=== PATIENT | male | born 1990 | race Caucasian/White ===

== ENCOUNTER → 2017-04-15 | Outpatient (CLI) | payer MEDICARE | LOC: M CLY 14:17 | DX: R05 Cough (principal) | CPT/HCPCS: 71046 ==

== ENCOUNTER 2017-11-27 16:55 | Inpatient (IN) | payer MEDICARE, MEDICAID, OTHER ==
[2017-11-27 17:36] LABS: BASO # 0.1 10^3/uL (0.0-0.2); BASO % 0.6 % (0.0-1.0); EOS # 0.2 10^3/uL (0.0-0.50); EOS % 1.4 % (0.0-3.0); HEMATOCRIT 42.9 % (42.0-52.0); HEMOGLOBIN 14.8 g/dl (13.5-17.5); IMMATURE GRANULOCYTE % 0.3 % (0-3.0); LYMPH % 17.6 % (24.0-44.0); MEAN CORPUSCULAR HEMOGLOBIN 29.8 pg (27.0-33.0); MEAN CORPUSCULAR HGB CONC 34.5 g/dl (32.0-36.5); MEAN CORPUSCULAR VOLUME 86.3 fl (80.0-96.0); MONO % 8.8 % (0.0-5.0); NEUTROPHILS # 8.1 10^3/uL (1.8-7.7); NEUTROPHILS % 71.3 % (36.0-66.0); PLATELET COUNT, AUTOMATED 326 10^3/uL (150-450); RED BLOOD COUNT 4.97 10^6/uL (4.30-6.10); RED CELL DISTRIBUTION WIDTH 13.6 % (11.5-14.5); WHITE BLOOD COUNT 11.4 10^3/uL (4.0-10.0)
[2017-11-27 17:46] LABS: INR 1.08; PROTHROMBIN TIME 14.1 SECONDS (12.1-14.4)
[2017-11-27 17:53] LABS: BEDSIDE GLUCOSE 94 MG/DL (70-105)
[2017-11-27 18:00] LABS: ANION GAP 8 MEQ/L (8-16); BLOOD UREA NITROGEN 9 MG/DL (7-18); CALCIUM LEVEL 8.9 MG/DL (8.5-10.1); CARBON DIOXIDE LEVEL 26 MEQ/L (21-32); CHLORIDE LEVEL 107 MEQ/L (98-107); CPK CREATINE PHOSPHOKINASE 321 U/L (39-308); CREATININE FOR GFR 0.79 MG/DL (0.70-1.30); GLOMERULAR FILTRATION RATE > 60.0 (>60); GLUCOSE, FASTING 86 MG/DL (70-100); MB/CK RELATIVE INDEX 0.37 (< OR =4); POTASSIUM SERUM 3.6 MEQ/L (3.5-5.1); SODIUM LEVEL 141 MEQ/L (136-145); TROPONIN I < 0.02 NG/ML (< 0.10)
[2017-11-27] MEDS: CLOPIDOGREL 75 MG TAB PO (18:37)
[2017-11-27] MEDS ORDERED: ACETAMINOPHEN TAB 650MG DOSE (2X325MG) PO (19:30)
[2017-11-27] MEDS: HYDROXYCHLOROQUINE 200 MG TAB PO (21:00)
[2017-11-27] MEDS: NICOTINE 21MG/24HR 1 EA TRANSDERMAL TD (21:31)
[2017-11-27] MEDS: DOCUSATE SODIUM 100 MG CAP PO (21:31)
[2017-11-28 06:25] LABS: BASO # 0.1 10^3/uL (0.0-0.2); BASO % 0.7 % (0.0-1.0); EOS # 0.2 10^3/uL (0.0-0.50); EOS % 2.5 % (0.0-3.0); IMMATURE GRANULOCYTE % 0.3 % (0-3.0); LYMPH # 2.5 10^3/uL (1.5-6.5); LYMPH % 25.7 % (24.0-44.0); MEAN CORPUSCULAR HEMOGLOBIN 29.4 pg (27.0-33.0); MEAN CORPUSCULAR HGB CONC 34.1 g/dl (32.0-36.5); MEAN CORPUSCULAR VOLUME 86.1 fl (80.0-96.0); MONO % 10.1 % (0.0-5.0); NEUTROPHILS # 5.9 10^3/uL (1.8-7.7); NEUTROPHILS % 60.7 % (36.0-66.0); PLATELET COUNT, AUTOMATED 306 10^3/uL (150-450); RED BLOOD COUNT 4.76 10^6/uL (4.30-6.10); RED CELL DISTRIBUTION WIDTH 13.6 % (11.5-14.5); WHITE BLOOD COUNT 9.7 10^3/uL (4.0-10.0)
[2017-11-28 06:50] LABS: ANION GAP 8 MEQ/L (8-16); BLOOD UREA NITROGEN 9 MG/DL (7-18); CALCIUM LEVEL 8.5 MG/DL (8.5-10.1); CARBON DIOXIDE LEVEL 27 MEQ/L (21-32); CHLORIDE LEVEL 108 MEQ/L (98-107); CREATININE FOR GFR 0.84 MG/DL (0.70-1.30); GLOMERULAR FILTRATION RATE > 60.0 (>60); GLUCOSE, FASTING 80 MG/DL (70-100); POTASSIUM SERUM 3.5 MEQ/L (3.5-5.1); SODIUM LEVEL 143 MEQ/L (136-145)
[2017-11-28] MEDS: NICOTINE 21MG/24HR 1 EA TRANSDERMAL TD (08:10)
[2017-11-28] MEDS: ASPIRIN 325 MG TAB PO (08:10)
[2017-11-28] MEDS: PYRIDOXINE 50 MG TAB PO (08:10)
[2017-11-28] MEDS: CLOPIDOGREL 75 MG TAB PO (08:11)
[2017-11-28] MEDS: HYDROXYCHLOROQUINE 200 MG TAB PO ×2 (08:11→21:31)
[2017-11-28] MEDS: DOCUSATE SODIUM 100 MG CAP PO ×2 (08:11→21:31)
[2017-11-28] MEDS: ATORVASTATIN 20 MG TAB PO (08:11)
[2017-11-28] MEDS: FOLIC ACID 1 MG TAB PO (08:11)
[2017-11-28] MEDS: BACITRACIN OINT 30GM TOP ×2 (09:16→21:32)
[2017-11-29 06:12] LABS: BASO % 0.3 % (0.0-1.0); EOS # 0.2 10^3/uL (0.0-0.50); EOS % 2.3 % (0.0-3.0); HEMATOCRIT 39.9 % (42.0-52.0); HEMOGLOBIN 13.5 g/dl (13.5-17.5); IMMATURE GRANULOCYTE % 0.3 % (0-3.0); LYMPH # 2.1 10^3/uL (1.5-6.5); LYMPH % 22.5 % (24.0-44.0); MEAN CORPUSCULAR HEMOGLOBIN 29.6 pg (27.0-33.0); MEAN CORPUSCULAR HGB CONC 33.8 g/dl (32.0-36.5); MEAN CORPUSCULAR VOLUME 87.5 fl (80.0-96.0); MONO # 0.9 10^3/uL (0.0-0.8); MONO % 10.1 % (0.0-5.0); NEUTROPHILS # 5.9 10^3/uL (1.8-7.7); NEUTROPHILS % 64.5 % (36.0-66.0); PLATELET COUNT, AUTOMATED 289 10^3/uL (150-450); RED BLOOD COUNT 4.56 10^6/uL (4.30-6.10); RED CELL DISTRIBUTION WIDTH 13.6 % (11.5-14.5); WHITE BLOOD COUNT 9.1 10^3/uL (4.0-10.0)
[2017-11-29 06:43] LABS: ANION GAP 6 MEQ/L (8-16); BLOOD UREA NITROGEN 10 MG/DL (7-18); CALCIUM LEVEL 8.5 MG/DL (8.5-10.1); CARBON DIOXIDE LEVEL 28 MEQ/L (21-32); CHLORIDE LEVEL 110 MEQ/L (98-107); CREATININE FOR GFR 0.93 MG/DL (0.70-1.30); GLOMERULAR FILTRATION RATE > 60.0 (>60); GLUCOSE, FASTING 90 MG/DL (70-100); POTASSIUM SERUM 4.1 MEQ/L (3.5-5.1); SODIUM LEVEL 144 MEQ/L (136-145)
[2017-11-29] MEDS: CLOPIDOGREL 75 MG TAB PO (08:13)
[2017-11-29] MEDS: PYRIDOXINE 50 MG TAB PO (08:13)
[2017-11-29] MEDS: NICOTINE 21MG/24HR 1 EA TRANSDERMAL TD (08:14)
[2017-11-29] MEDS: FOLIC ACID 1 MG TAB PO (08:14)
[2017-11-29] MEDS: BACITRACIN OINT 30GM TOP ×2 (08:14→20:31)
[2017-11-29] MEDS: HYDROXYCHLOROQUINE 200 MG TAB PO ×2 (08:14→20:31)
[2017-11-29] MEDS: DOCUSATE SODIUM 100 MG CAP PO ×2 (08:14→20:31)
[2017-11-29] MEDS: ATORVASTATIN 20 MG TAB PO (08:14)
[2017-11-29] MEDS: ASPIRIN 81 MG CHEW TABLET PO (08:14)
[2017-11-30 06:01] LABS: BASO # 0.1 10^3/uL (0.0-0.2); BASO % 0.7 % (0.0-1.0); EOS # 0.3 10^3/uL (0.0-0.50); EOS % 2.7 % (0.0-3.0); HEMATOCRIT 38.4 % (42.0-52.0); HEMOGLOBIN 12.8 g/dl (13.5-17.5); IMMATURE GRANULOCYTE % 0.4 % (0-3.0); LYMPH # 1.9 10^3/uL (1.5-6.5); LYMPH % 20.7 % (24.0-44.0); MEAN CORPUSCULAR HEMOGLOBIN 29.4 pg (27.0-33.0); MEAN CORPUSCULAR HGB CONC 33.3 g/dl (32.0-36.5); MEAN CORPUSCULAR VOLUME 88.3 fl (80.0-96.0); MONO # 0.9 10^3/uL (0.0-0.8); MONO % 9.3 % (0.0-5.0); NEUTROPHILS # 6.2 10^3/uL (1.8-7.7); NEUTROPHILS % 66.2 % (36.0-66.0); PLATELET COUNT, AUTOMATED 302 10^3/uL (150-450); RED BLOOD COUNT 4.35 10^6/uL (4.30-6.10); RED CELL DISTRIBUTION WIDTH 13.7 % (11.5-14.5); WHITE BLOOD COUNT 9.4 10^3/uL (4.0-10.0)
[2017-11-30 06:20] LABS: ANION GAP 5 MEQ/L (8-16); BLOOD UREA NITROGEN 13 MG/DL (7-18); CALCIUM LEVEL 8.2 MG/DL (8.5-10.1); CARBON DIOXIDE LEVEL 26 MEQ/L (21-32); CHLORIDE LEVEL 113 MEQ/L (98-107); CREATININE FOR GFR 0.76 MG/DL (0.70-1.30); GLOMERULAR FILTRATION RATE > 60.0 (>60); GLUCOSE, FASTING 91 MG/DL (70-100); SODIUM LEVEL 144 MEQ/L (136-145)
[2017-11-30] MEDS: CLOPIDOGREL 75 MG TAB PO (08:22)
[2017-11-30] MEDS: HYDROXYCHLOROQUINE 200 MG TAB PO (08:22)
[2017-11-30] MEDS: FOLIC ACID 1 MG TAB PO (08:22)
[2017-11-30] MEDS: DOCUSATE SODIUM 100 MG CAP PO (08:22)
[2017-11-30] MEDS: NICOTINE 21MG/24HR 1 EA TRANSDERMAL TD (08:23)
[2017-11-30] MEDS: BACITRACIN OINT 30GM TOP (08:23)
[2017-11-30] MEDS: PYRIDOXINE 50 MG TAB PO (08:23)
[2017-11-30] MEDS: ATORVASTATIN 20 MG TAB PO (08:23)
[2017-11-30] MEDS: ASPIRIN 81 MG CHEW TABLET PO (08:23)
== END 2017-11-30 11:17 | disposition home or self-care (01) | DRG 57 ==
LOC: M ED 16:55 → M ED INP 19:17 → M MSPAV 21:16
DX: I69.322 Dysarthria following cerebral infarction (principal); D68.52 Prothrombin gene mutation; F17.210 Nicotine dependence, cigarettes, uncomplicated; I69.391 Dysphagia following cerebral infarction; L93.0 Discoid lupus erythematosus; Z79.82 Long term (current) use of aspirin; Z79.899 Other long term (current) drug therapy

== ENCOUNTER 2017-12-06 09:49 | Outpatient (RCR) | payer MEDICARE, MEDICAID | END 2017-12-21 | LOC: M ST 09:49 | DX: I67.9 Cerebrovascular disease, unspecified (principal); I69.019 Unspecified symptoms and signs involving cognitive functions following nontraumatic subarachnoid hemorrhage | CPT/HCPCS: 97112 ==

== ENCOUNTER → 2017-12-07 | Outpatient (CLI) | payer MEDICARE, MEDICAID ==
[2017-12-07 14:13] LABS: COLLAGEN EPINEPHRINE > 300 SECONDS (74-162)
[2017-12-07 14:32] LABS: COLLAGEN ADP 174 SECONDS (56-103)
== END ==
LOC: M LAB 12:56
DX: I63.50 Cerebral infarction due to unspecified occlusion or stenosis of unspecified cerebral artery (principal)
CPT/HCPCS: 36415

== ENCOUNTER 2017-12-12 14:23 | Day surgery (SDC) | payer MEDICARE, MEDICAID ==
[2017-12-12] MEDS: LR 1,000 ML IV (14:55)
[2017-12-12] MEDS ORDERED: MIDAZOLAM INJ 2 MG/2 ML VIAL (J2250) As Ordered (17:33)
[2017-12-12] MEDS ORDERED: PROPOFOL 200 MG/20 ML VIAL As Ordered ×3 (17:33→18:37)
[2017-12-12] MEDS ORDERED: fentaNYL 100 MCG/2 ML INJECTION (J3010) As Ordered (17:33)
[2017-12-12] MEDS ORDERED: LIDOCAINE 2% INJ 100 MG/5 ML SDV (FOR ANES.) As Ordered (17:36)
[2017-12-12] MEDS: CETACAINE SPRAY 5GM As Ordered (18:26)
[2017-12-12] MEDS: LIDOCAINE VISCOUS 2% SOLN 15ML UDC As Ordered (18:26)
== END 2017-12-12 20:35 | disposition home or self-care (01) ==
LOC: M SDC 14:23
DX: I63.9 Cerebral infarction, unspecified (principal); I10 Essential (primary) hypertension; F17.210 Nicotine dependence, cigarettes, uncomplicated; D68.51 Activated protein C resistance; E03.9 Hypothyroidism, unspecified; M32.10 Systemic lupus erythematosus, organ or system involvement unspecified; Z79.82 Long term (current) use of aspirin; Z79.02 Long term (current) use of antithrombotics/antiplatelets; F41.9 Anxiety disorder, unspecified; Z79.899 Other long term (current) drug therapy
CPT/HCPCS: 93312

== ENCOUNTER 2017-12-27 09:36 | Outpatient (RCR) | payer MEDICARE, MEDICAID | END 2018-01-20 | LOC: M PT 09:36 → M ST 01-10 09:35 → M PT 09:36 | DX: I67.9 Cerebrovascular disease, unspecified (principal); I69.019 Unspecified symptoms and signs involving cognitive functions following nontraumatic subarachnoid hemorrhage | CPT/HCPCS: 97112 ==

== ENCOUNTER 2018-02-07 09:56 | Outpatient (RCR) | payer MEDICARE, MEDICAID | END 2018-02-20 | LOC: M ST 09:56 | PROVIDERS: ATTEND Family Medicine | DX: I63.50 Cerebral infarction due to unspecified occlusion or stenosis of unspecified cerebral artery (principal); I69.391 Dysphagia following cerebral infarction | CPT/HCPCS: 92507; 92526; G8999; G9186 ==

== ENCOUNTER → 2018-02-07 | Outpatient (CLI) | payer MEDICARE, MEDICAID ==
[~2018-02-07] MED LIST: ASPI325T PO; ATOR40TA75 PO; B-650TAB2 PO; CHIL81CH2 PO; CLOP75TA2 PO; COLA100C5 PO; FOLI1TAB5 PO; HYDR200T3 PO; LIPI20TA PO; NICO21PAT TD; NO HOME MEDS; PROT1TAB2 PO; TYLE325T5 PO; [UNRECOGNIZED DRUG - CODE] PO
[2018-02-12 00:11] LABS: HOMOCYST(E)INE SERUM 11.8 umol/L (0.0-15.0); VITAMIN E(ALPHA TOCOPHEROL) 13.7 mg/L (5.9-19.4); VITAMIN E(GAMMA TOCOPHEROL) 0.1 mg/L (0.7-4.9)
== END ==
LOC: M LAB 11:22
PROVIDERS: ATTEND Family Medicine
DX: D68.59 Other primary thrombophilia (principal); I63.9 Cerebral infarction, unspecified

== ENCOUNTER → 2018-03-23 | Outpatient (RCR) | payer MEDICARE, MEDICAID ==
--- NOTE | 2018-02-23 12:46 | NUR ---
The patient has expressed frustration with word finding and his ability to think of words in conversations. Therapy has switched focus to target the aphasia, word finding, and his ability to converse in his daily living environment. The patient's short term and group home goals have been modified to reflect this shift in focus. Addendum: 02/23/18 at 1247 by SARAH SCOTT Amended: Links added.
[~2018-03-23] MED LIST changes: +FOLI1TAB11 PO; -FOLI1TAB5 PO; +[UNRECOGNIZED DRUG - CODE] PO; -[UNRECOGNIZED DRUG - CODE] PO
== END ==
LOC: M ST 02-23 12:12
PROVIDERS: ATTEND Family Medicine
DX: Z51.89 Encounter for other specified aftercare (principal); I63.9 Cerebral infarction, unspecified; I69.320 Aphasia following cerebral infarction
CPT/HCPCS: 92507; G8999; G9186

== ENCOUNTER → 2018-04-20 | Outpatient (RCR) | payer MEDICARE, MEDICAID | LOC: M ST 03-30 12:45 | PROVIDERS: ATTEND Family Medicine | DX: I69.320 Aphasia following cerebral infarction (principal) | CPT/HCPCS: 92507; 96125; G0515 ==

== ENCOUNTER → 2018-05-16 | Outpatient (REF) | payer MEDICARE, MEDICAID ==
[~2018-05-16] MED LIST changes: +ASPI-1 PO; +ASPI-286 PO; -ASPI325T PO; -CHIL81CH2 PO; +VITA-157 PO; -[UNRECOGNIZED DRUG - CODE] PO
[2018-05-16 19:20] LABS: ALT/SGPT 36 U/L (12-78); BLOOD UREA NITROGEN 9 MG/DL (7-18); CALCIUM LEVEL 8.6 MG/DL (8.5-10.1); CARBON DIOXIDE LEVEL 29 MEQ/L (21-32); CHLORIDE LEVEL 106 MEQ/L (98-107); CHOLESTEROL LEVEL 68 MG/DL (<200); CHOLESTEROL RISK RATIO 1.789 (<5); CREATININE FOR GFR 0.87 MG/DL (0.70-1.30); GLOMERULAR FILTRATION RATE > 60.0 (>60); GLUCOSE, FASTING 62 MG/DL (70-100); HDL CHOLESTEROL 38 MG/DL (>40); LDL CHOLESTEROL 19 MG/DL (<100); NON-HDL-C 30 MG/DL; POTASSIUM SERUM 4.9 MEQ/L (3.5-5.1); SODIUM LEVEL 140 MEQ/L (136-145); TRIGLYCERIDES LEVEL 57 MG/DL (<150)
== END ==
LOC: M SFHCCLAY 13:18
PROVIDERS: ATTEND Family Medicine
DX: I63.50 Cerebral infarction due to unspecified occlusion or stenosis of unspecified cerebral artery (principal); D68.59 Other primary thrombophilia
CPT/HCPCS: 80048; 80061; 84207; 84460; G0463

== ENCOUNTER 2018-05-18 12:39 | Outpatient (RCR) | payer MEDICARE, MEDICAID ==
[~2018-05-18 12:39] MED LIST changes: -ASPI-1 PO; -ASPI-286 PO; +ASPI325T PO; +CHIL81CH2 PO; -VITA-157 PO; +[UNRECOGNIZED DRUG - CODE] PO
== END 2018-05-21 ==
LOC: M ST 12:39
PROVIDERS: ATTEND Family Medicine
DX: I67.9 Cerebrovascular disease, unspecified (principal)
CPT/HCPCS: G0515 ×6

== ENCOUNTER → 2018-06-21 | Outpatient (REF) | payer MEDICARE, MEDICAID ==
[~2018-06-21] MED LIST changes: +ASPI-1 PO; +ASPI-286 PO; -ASPI325T PO; -CHIL81CH2 PO; +VITA-157 PO; -[UNRECOGNIZED DRUG - CODE] PO
[2018-06-21 15:47] LABS: BASO # 0.1 10^3/uL (0.0-0.2); BASO % 0.9 % (0.0-1.0); EOS # 0.2 10^3/uL (0.0-0.50); EOS % 1.9 % (0.0-3.0); HEMATOCRIT 45.4 % (42.0-52.0); HEMOGLOBIN 15.4 g/dl (13.5-17.5); LYMPH # 1.8 10^3/uL (1.5-6.5); LYMPH % 20.1 % (24.0-44.0); MEAN CORPUSCULAR HEMOGLOBIN 28.4 pg (27.0-33.0); MEAN CORPUSCULAR HGB CONC 33.9 g/dl (32.0-36.5); MEAN CORPUSCULAR VOLUME 83.6 fl (80.0-96.0); MONO # 0.9 10^3/uL (0.0-0.8); MONO % 9.4 % (0.0-5.0); NEUTROPHILS # 6.2 10^3/uL (1.8-7.7); NEUTROPHILS % 67.4 % (36.0-66.0); PLATELET COUNT, AUTOMATED 330 10^3/uL (150-450); RED BLOOD COUNT 5.43 10^6/uL (4.30-6.10); WHITE BLOOD COUNT 9.2 10^3/uL (4.0-10.0)
[2018-06-21 15:55] LABS: ALBUMIN 3.7 GM/DL (3.2-5.2); ALT/SGPT 37 U/L (12-78); BILIRUBIN,TOTAL 0.4 MG/DL (0.2-1.0); BLOOD UREA NITROGEN 8 MG/DL (7-18); CALCIUM LEVEL 8.5 MG/DL (8.5-10.1); CARBON DIOXIDE LEVEL 31 MEQ/L (21-32); CHLORIDE LEVEL 106 MEQ/L (98-107); CREATININE FOR GFR 0.92 MG/DL (0.70-1.30); GLOMERULAR FILTRATION RATE > 60.0 (>60); GLUCOSE, FASTING 81 MG/DL (70-100); POTASSIUM SERUM 4.2 MEQ/L (3.5-5.1); SODIUM LEVEL 139 MEQ/L (136-145); TOTAL PROTEIN 7.4 GM/DL (6.4-8.2)
[2018-06-21 16:02] LABS: VITAMIN B12 LEVEL 883 PG/ML (247-911)
[2018-06-25 15:04] LABS: HOMOCYST(E)INE SERUM 15.8 umol/L (0.0-15.0); VITAMIN E(ALPHA TOCOPHEROL) 4.8 mg/L (5.9-19.4); VITAMIN E(GAMMA TOCOPHEROL) 0.4 mg/L (0.7-4.9)
== END ==
LOC: M LABNEURO 13:15
PROVIDERS: ATTEND Psychiatry & Neurology Neurology
DX: E53.8 Deficiency of other specified B group vitamins (principal); E53.1 Pyridoxine deficiency; E56.0 Deficiency of vitamin E; Z86.73 Personal history of transient ischemic attack (TIA), and cerebral infarction without residual deficits

== ENCOUNTER → 2022-03-17 | Outpatient (CLI) | payer MEDICARE, MEDICAID ==
[~2022-03-17] MED LIST changes: -ASPI-286 PO; +SM C81CH2 PO; -VITA-157 PO; +VITAE40CA PO
== END ==
LOC: M CLY 14:38
PROVIDERS: ATTEND Family Medicine
DX: M32.9 Systemic lupus erythematosus, unspecified (principal)

== ENCOUNTER → 2022-05-18 | Outpatient (CLI) | payer MEDICARE, MEDICAID | LOC: M CARPUL 10:42 | PROVIDERS: ATTEND Physician Assistant | DX: R06.00 Dyspnea, unspecified (principal) ==

== ENCOUNTER → 2022-05-28 | Outpatient (CLI) | payer MEDICARE, MEDICAID | LOC: M PLAIMG 08:48 | PROVIDERS: ATTEND Physician Assistant | DX: R06.00 Dyspnea, unspecified (principal) ==

== ENCOUNTER → 2022-12-23 | Outpatient (CLI) | payer MEDICARE, MEDICAID ==
[~2022-12-23] MED LIST changes: -HYDR200T3 PO; +HYDR200T46 PO
== END ==
LOC: M CARPUL 11-30 09:50
PROVIDERS: ATTEND Internal Medicine Pulmonary Disease
DX: R06.00 Dyspnea, unspecified (principal)

== ENCOUNTER → 2023-03-24 | Outpatient (REF) | payer MEDICARE, MEDICAID ==
[2023-03-24 20:37] LABS: CHOLESTEROL RISK RATIO 2.33 (<5); HDL CHOLESTEROL 42.4 MG/DL (>40); LDL CHOLESTEROL 45.6 MG/DL (<100); NON-HDL-C 56.6 MG/DL
== END ==
LOC: M SFHCCLAY 11:20
PROVIDERS: ATTEND Family Medicine
DX: I63.50 Cerebral infarction due to unspecified occlusion or stenosis of unspecified cerebral artery (principal); Z86.73 Personal history of transient ischemic attack (TIA), and cerebral infarction without residual deficits

== ENCOUNTER → 2023-03-24 | Outpatient (REF) | payer MEDICARE, MEDICAID ==
[2023-03-24 20:09] LABS: BASO # 0.1 10^3/uL (0.0-0.2); BASO % 0.8 % (0.0-1.0); EOS # 0.1 10^3/uL (0.0-0.5); EOS % 0.8 % (0.0-3.0); HEMATOCRIT 47.4 % (42.0-52.0); HEMOGLOBIN 16.3 g/dl (13.5-17.5); LYMPH # 1.5 10^3/uL (1.5-5.0); LYMPH % 16.5 % (24.0-44.0); MEAN CORPUSCULAR HEMOGLOBIN 30.9 pg (27.0-33.0); MEAN CORPUSCULAR HGB CONC 34.4 g/dl (32.0-36.5); MEAN CORPUSCULAR VOLUME 89.8 fl (80.0-96.0); MONO # 0.7 10^3/uL (0.0-0.8); MONO % 7.6 % (2.0-8.0); NEUTROPHILS # 6.6 10^3/uL (1.5-8.5); PLATELET COUNT, AUTOMATED 342 10^3/uL (150-450); RED BLOOD COUNT 5.28 10^6/uL (4.30-6.10); WHITE BLOOD COUNT 8.9 10^3/uL (4.0-10.0)
[2023-03-24 20:38] LABS: ALBUMIN 3.8 G/DL (3.2-5.2); ALKALINE PHOSPHATASE 96 U/L (46-116); ALT/SGPT 14 U/L (7.0-40); AST/SGOT 23 U/L (<34); BILIRUBIN,TOTAL 0.4 MG/DL (0.3-1.2); BLOOD UREA NITROGEN 15 MG/DL (9-23); CALCIUM LEVEL 9.3 MG/DL (8.5-10.1); CARBON DIOXIDE LEVEL 29 MMOL/L (20-31); CHLORIDE LEVEL 107 MMOL/L (98-107); CREATININE FOR GFR 0.79 MG/DL (0.70-1.30); GLOMERULAR FILTRATION RATE > 60.0 (>60); GLUCOSE, FASTING 90 MG/DL (60-100); POTASSIUM SERUM 4.2 MMOL/L (3.5-5.1); SODIUM LEVEL 142 MMOL/L (136-145); TOTAL PROTEIN 6.6 G/DL (5.7-8.2)
[2023-03-24 20:39] LABS: FOLATE > 24.0 NG/ML (>5.4); VITAMIN B12 LEVEL 441 PG/ML (211-911)
== END ==
LOC: M LABDRAWC 17:40
PROVIDERS: ATTEND Psychiatry & Neurology Neurology
DX: I63.9 Cerebral infarction, unspecified (principal)

== ENCOUNTER → 2023-05-20 | Outpatient (CLI) | payer MEDICARE, MEDICAID ==
[~2023-05-20] MED LIST changes: +E-Z-GAS II EFFERVESCENT PACKET (SODIUM BICARB./CITRIC ACID/SIMETHICONE) As Ordered ONE; +E-Z-HD 98% w/w 340GM SUSP BTL As Ordered ONE; +E-Z-PAQUE 96% w/w SUSP 176GM BTL As Ordered ONE
== END ==
LOC: M RAD 08:54
PROVIDERS: ATTEND Family Medicine
DX: K44.9 Diaphragmatic hernia without obstruction or gangrene (principal); K21.9 Gastro-esophageal reflux disease without esophagitis

== ENCOUNTER → 2025-01-14 | Outpatient (REF) | payer MEDICARE, MEDICAID ==
[~2025-01-14] MED LIST changes: -E-Z-GAS II EFFERVESCENT PACKET (SODIUM BICARB./CITRIC ACID/SIMETHICONE) As Ordered ONE; -E-Z-HD 98% w/w 340GM SUSP BTL As Ordered ONE; -E-Z-PAQUE 96% w/w SUSP 176GM BTL As Ordered ONE
[2025-01-14 13:22] LABS: BASO # 0.1 10^3/uL (0.0-0.2); BASO % 0.7 % (0.0-1.0); EOS # 0.1 10^3/uL (0.0-0.5); EOS % 1.5 % (0.0-3.0); LYMPH # 1.5 10^3/uL (1.5-5.0); LYMPH % 16.7 % (24.0-44.0); MONO # 0.7 10^3/uL (0.0-0.8); MONO % 8.3 % (2.0-8.0); NEUTROPHILS # 6.3 10^3/uL (1.5-8.5); NEUTROPHILS % 72.3 % (36.0-66.0); PLATELET COUNT, AUTOMATED 291 10^3/uL (150-450)
[2025-01-14 13:28] LABS: ALT/SGPT 24 U/L (7.0-40); AST/SGOT 28 U/L (<34); CALCIUM LEVEL 8.5 MG/DL (8.5-10.1); CARBON DIOXIDE LEVEL 29 MMOL/L (20-31); CHLORIDE LEVEL 108 MMOL/L (98-107); CREATININE FOR GFR 0.88 MG/DL (0.70-1.30); GLOMERULAR FILTRATION RATE > 90.0 (>60); POTASSIUM SERUM 4.4 MMOL/L (3.5-5.1); SODIUM LEVEL 143 MMOL/L (136-145)
[2025-01-14 13:31] LABS: VITAMIN B12 LEVEL 417 PG/ML (211-911)
== END ==
LOC: M LABDRAWC 12:44
PROVIDERS: ATTEND Psychiatry & Neurology Neurology
DX: Z86.73 Personal history of transient ischemic attack (TIA), and cerebral infarction without residual deficits (principal); E53.8 Deficiency of other specified B group vitamins

== ENCOUNTER → 2025-01-14 | Outpatient (REF) | payer MEDICARE, MEDICAID ==
[2025-01-14 13:11] LABS: ALT/SGPT 23 U/L (7.0-40); AST/SGOT 27 U/L (<34); CALCIUM LEVEL 8.4 MG/DL (8.5-10.1); CARBON DIOXIDE LEVEL 30 MMOL/L (20-31); CHLORIDE LEVEL 107 MMOL/L (98-107); CHOLESTEROL LEVEL 115 MG/DL (<200); CHOLESTEROL RISK RATIO 2.56 (<5); CREATININE FOR GFR 0.88 MG/DL (0.70-1.30); GLOMERULAR FILTRATION RATE > 90.0 (>60); LDL CHOLESTEROL 60.5 MG/DL (<100); NON-HDL-C 70.1 MG/DL; POTASSIUM SERUM 4.3 MMOL/L (3.5-5.1); SODIUM LEVEL 141 MMOL/L (136-145); TRIGLYCERIDES LEVEL 48 MG/DL (<150)
[2025-01-14 13:28] LABS: ESTIMATED AVERAGE GLUCOSE 91.0 MG/DL (60-110)
== END ==
LOC: M SFHCCLAY 07:07
PROVIDERS: ATTEND Physician Assistant
DX: M32.9 Systemic lupus erythematosus, unspecified (principal); I63.50 Cerebral infarction due to unspecified occlusion or stenosis of unspecified cerebral artery; E78.2 Mixed hyperlipidemia; J45.40 Moderate persistent asthma, uncomplicated; Z72.0 Tobacco use; Z79.899 Other long term (current) drug therapy